=== PATIENT | male | born 1940 | race Caucasian/White ===

== ENCOUNTER → 2017-04-12 | Outpatient (CLI) | payer MEDICARE, OTHER ==
[2017-04-12 11:18] VITALS: BP 145/84; PULSE 66; RESP 18; TEMP 98
--- NOTE | 2017-04-12 11:32 | P.PN ---
Progress Note - Text Progress Note Date: 04/12/17 Patient returns for followup for chronic back pain with radiation to RLE. Patient underwent LESI x 2 in 2016, which provided excellent relief and pain is only now beginning to return. Patient continues on only prn Motrin medications for pain with good relief. Patient denies adverse drug effects from medications. Today, pt denies new-onset weakness, bowel/bladder incontinence, or any other signs or symptoms of cauda equina syndrome. There are no signs of acute intoxication, and no indications of medication diversion or overuse. In addition to above, 13-point review of systems is also negative for chest pain , shortness of breath, changes in vision, changes in hearing, new onset weakness , abdominal pain, diarrhea, extreme fatigue, malaise, fever, skin changes, homicidal or suicidal ideation, or bowel or bladder incontinence. Vital Signs: Reviewed in EMR Gen: WDWN, AAOx3, NAD HEENT: NCAT, EOMI, hearing grossly normal Pulm: resp unlabored Abd: soft, NT, ND Neck: supple, trachea midline ROM in flexion lumbar spine: reduced ROM in extension lumbar spine: reduced Lumbar paravertebral tenderness: + Facet loading: + R SI joint tenderness: + R > L Carlos's test: neg Straight leg raise: + RLE at 10 degrees Neuro: CN II-XII grossly intact, muscle strength lower extremities PRESERVED Imaging: Reviewed in EMR Assessment: 1. lumbar radiculitis 2. lumbar spondylosis 3. chronic pain syndrome Plan: 1. Explanation: Opioid and psychological risk scores were reviewed. Diagnoses , prognoses, and multiple treatment options including but not limited to physical therapy, interventional therapies, adjuvant medical therapies, narcotic medication therapies, and surgery were discussed with the patient and all questions were answered to the patient's satisfaction. 2. Opioid agreement: no opioids prescribed today 3. Counseling: The patient was counseled extensively on SMOKING CESSATION, BODY MASS INDEX, EXERCISE. Specifically, the patient was instructed regarding the importance of quitting smoking, weight control, and exercise in the context of both chronic pain and overall health. 4. Procedures: LESI series L4-L5 or L5-S1 (preferable) 5. Consultations: None 6. Investigations: None 7. Medications: none prescribed 8. Disposition: f/u for PQRS measures: 1-Patient's medications are documented in the chart. 2-Tobacco use is positive, counseling given 3-Patient has not had a pneumococcal vaccine. 4-Advanced care planning discussed, patient unable to give. 5-Opioid contract NOT signed with the patient. 6-Pain positive, follow-up visit or procedure scheduled 7-Patient's blood pressure measured and documented, and WNL. 8-Patient's weight was measured, and body mass index ABOVE the normal limits, and counseling was done. Patient instructed to follow up with PCP. 9-Patient WAS NOT identified as an unhealthy alcohol user.
== END | disposition home or self-care (01) ==
LOC: PNWHC3 11:03
PROVIDERS: ATTEND Anesthesiology
DX: G89.4 Chronic pain syndrome (principal); M47.26 Other spondylosis with radiculopathy, lumbar region; Z79.1 Long term (current) use of non-steroidal anti-inflammatories (NSAID)
CPT/HCPCS: 99211

== ENCOUNTER → 2017-04-18 | Day surgery (SDC) | payer MEDICARE, OTHER ==
[2017-04-13 15:17] VITALS: BMI 26.1
[~2017-04-18] MED LIST: IV FLUID CONTINUATION 1,000 ML IV ONE; LACTATED RINGERS 1,000 ML IV SCH
[2017-04-18 07:49] VITALS: TEMP 97.9
[2017-04-18 08:33] VITALS: RESP 18
[2017-04-18 08:48] VITALS: BP 112/67; PULSE 58
--- NOTE | 2017-04-18 08:48 | FL ---
EXAMINATION TYPE: FL guided pain mgmt statistic DATE OF EXAM: 04/18/2017 CLINICAL HISTORY: Low back pain. TECHNIQUE: Fluoroscopy. COMPARISON: None. FINDINGS: Fluoroscopic guidance was provided during pain relief procedure performed by Dr. Velez . A total of 10 seconds of fluoroscopic time was utilized during the procedure and 3 spot images are ac quired. Images acquired shows needle localization at lumbosacral junction epidural space. IMPRESSION: As Above.
--- NOTE | 2017-04-18 14:06 | P.PCN ---
Date of Procedure: 04/18/17 Surgeon: Drake Velez Pathology: none sent Condition: stable Disposition: PACU Description of Procedure: PREOPERATIVE DIAGNOSIS: 1-Lumbar spinal stenosis POSTOPERATIVE DIAGNOSIS: 1-Lumbar spinal stenosis PROCEDURE 1. Lumbar epidural steroid injection under fluoroscopic guidance at the L5-S1 level. 2. Lumbar epidurogram. ANESTHESIA: Local with 1% lidocaine; IV sedation with Versed/fentanyl. EBL: Minimal PROCEDURE INDICATION: The patient with low back pain and radiculitis symptoms unresponsive to conservative treatment. Fluoroscopy was used to optimize visualization of the needle placement and to maximize safety. PROCEDURE DESCRIPTION / TECHNIQUE: The patient was seen and identified in the preoperative area. Risks, benefits, complications, and alternatives were discussed with the patient, including but not limited to bleeding, infection, nerve damage, allergic reactions to medications, and incomplete pain relief. The patient agreed to proceed with the procedure and signed the consent after all questions were answered. IV was started, and vital signs were stable. Patient was taken to the OR and time out was completed to confirm patient position, procedure, laterality of pain, and allergies. The patient was placed in the prone position on procedure table and a pillow was placed under the abdomen to reduce lumbar lordosis. The lumbosacral area was prepped and draped in the usual sterile fashion. Critical pause was taken. Vital signs were closely monitored during the procedure. Conscious sedation was used during the procedure to decrease patients anxiety. Using anterior-posterior fluoroscopy, the L5-S1 interlaminar space was identified and the skin over this site was marked and then infiltrated with 1% lidocaine subcutaneously. Subsequently, a 20-gauge Tuohy epidural needle was inserted and advanced toward the epidural space using the Loss of resistance technique and guided by AP and lateral fluoroscopy. The correct needle position in the epidural space was verified with the injection of 2 mL of the water soluble contrast dye Omnipaque 300 contrast and observing an excellent epidurogram with the epidural spread of the dye, after negative aspiration for blood and CSF and in the absence of paresthesias. Again after negative aspiration, a 8 ml mixture containing 80 mg of Depo Medrol and 4 ml of preservative free Normal Saline, and 2 ml of preservative free lidocaine 1% solution was injected and a washout of epidurogram was seen. Needle was withdrawn intact, skin was cleansed, and bandages were applied. COMPLICATIONS: None COMMENTS: DISPOSITION / PLANS: The patient was placed in a supine position and transferred to the recovery area in a stable condition for observation. There was no evidence of lower extremity motor or sensory deficit after the procedure. Patient was discharged from the recovery room after meeting discharge criteria. Home discharge instructions were given to the patient by the staff. The patient was reexamined prior to discharge and there were no issues. The patient will schedule a follow up in the clinic in 2-4 weeks.
== END ==
LOC: ORPAIN 07:22
PROVIDERS: ATTEND Anesthesiology
DX: G89.4 Chronic pain syndrome (principal); M48.061 Spinal stenosis, lumbar region without neurogenic claudication; M47.26 Other spondylosis with radiculopathy, lumbar region; F17.200 Nicotine dependence, unspecified, uncomplicated; I10 Essential (primary) hypertension; Z91.040 Latex allergy status
CPT/HCPCS: 62323; J1030; Q9965

== ENCOUNTER → 2017-05-13 | Outpatient (CLI) | payer MEDICARE, OTHER ==
--- NOTE | 2017-05-13 14:28 | XR ---
EXAMINATION TYPE: XR chest 2V DATE OF EXAM: 05/13/2017 COMPARISON: NONE HISTORY: Shortness of breath TECHNIQUE: Frontal and lateral views of the chest are obtained. FINDINGS: Scattered senescent parenchymal changes noted. Hyperinflation compatible with COPD. No evidence for infiltrate. No evidence for atelectasis. Heart size is stable. Mediastinal structures are stable and grossly unremarkable. No evidence for hilar prominence. Degenerative changes dorsal spine. IMPRESSION: 1. No evidence for acute pulmonary disease.
--- NOTE | 2017-05-13 14:30 | XR ---
EXAMINATION TYPE: XR thoracic spine complete DATE OF EXAM: 05/13/2017 CLINICAL HISTORY: pain TECHNIQUE: Frontal, lateral, and swimmer's view of thoracic spine are obtained. COMPARISON: None. FINDINGS: Thoracic spine show satisfactory alignment without evidence of acute fracture or dislocatio n. Vertebral body heights are preserved. Moderate degenerative disc space narrowing and scattered sp ondylosis. Visualized ribs are unremarkable. IMPRESSION: No acute fracture or dislocation is seen in the thoracic spine. ICD 10 NO FRACTURE, INIT IAL EVALUATION
== END ==
LOC: RADXRMAIN 13:58
PROVIDERS: ATTEND Internal Medicine
DX: R07.9 Chest pain, unspecified (principal); M54.6 Pain in thoracic spine; C61 Malignant neoplasm of prostate
CPT/HCPCS: 71046; 72072

== ENCOUNTER 2017-08-31 09:38 | Day surgery (SDC) | payer MEDICARE, OTHER ==
[2017-08-29 15:22] VITALS: BMI 25.4
[~2017-08-31 09:38] MED LIST changes: -IV FLUID CONTINUATION 1,000 ML IV ONE
[2017-08-31 11:16] VITALS: RESP 16; TEMP 98.2
[2017-08-31] MEDS ORDERED: LIDOCAINE 1% 20 ML VIAL (10MG/ML) FOR IV START INTRADERMA ONE (11:27)
--- NOTE | 2017-08-31 12:58 | P.PCN ---
Date of Procedure: 08/31/17 Procedure(s) Performed: PREOPERATIVE DIAGNOSIS: 1- Lumbar Degenerative Disc Diseases 2-Lumbar radiculopathy. POSTOPERATIVE DIAGNOSIS: 1-Lumber Degenerative Disc Diseases 2-Lumbar radiculopathy PROCEDURE 1. Lumbar epidural steroid injection under fluoroscopic guidance at the L5-S1 level. 2. Lumbar epidurogram. ANESTHESIA: Local with 1% lidocaine 3 ml and , moderate sedation with intravenous Versed 1mg ,and fentanyle 50 Mcg EBL: Minimal PROCEDURE INDICATION: The patient with low back pain and radiculitis symptoms unresponsive to conservative treatment. Fluoroscopy was used to optimize visualization of the needle placement and to maximize safety. PROCEDURE DESCRIPTION / TECHNIQUE: The patient was seen and identified in the preoperative area. Risks, benefits , complications including but not limited to infections ,bleeding ,allergic reaction to the medications ,nerve damage and not complete pain releife , and alternatives were discussed with the patient. The patient agreed to proceed with the procedure and signed the consent. IV was started, and vital signs were stable. Patient was taken to the OR and time out was completed. The patient was placed in the prone position on procedure table and a pillow was placed under the abdomen to reduce lumbar lordosis. The lumbosacral area was prepped and draped in the usual sterile fashion.ere closely monitored during the procedure. Conscious sedation was used during the procedure to decrease patients anxiety. Vital signs was monitered during the entire procedure. Using anterior-posterior fluoroscopy, the L5-S1 interlaminar space was identified and the skin over this site was marked and then infiltrated with 1% lidocaine subcutaneously. Subsequently, a 20-gauge Tuohy epidural needle was inserted and advanced toward the epidural space using the ``Loss of resistance technique and guided by AP and lateral fluoroscopy. The correct needle position in the epidural space was verified with the injection of 2 mL of the water soluble contrast dye Isovue 200 contrast and observing an excellent epidurogram with the epidural spread of the dye, after negative aspiration for blood and CSF and in the absence of paresthesias. Again after negative aspiration, a 6 ml mixture containing 40 mg Depo-Medrol, and 2 ml of preservative free Normal Saline, and 2 ml of preservative free lidocaine 1% solution was injected and a washout of epidurogram was seen. Needle was withdrawn intact, skin was cleansed, and bandages were applied. COMPLICATIONS: None DISPOSITION / PLANS: The patient was placed in a supine position and transferred to the recovery area in a stable condition for observation. There was no evidence of lower extremity motor or sensory deficit after the procedure. Patient was discharged from the recovery room after meeting discharge criteria. Home discharge instructions were given to the patient by the staff. The patient was reexamined prior to discharge. The patient will schedule a follow up in the clinic in 2-4 weeks.
[2017-08-31] MEDS ORDERED: IV FLUID CONTINUATION 1,000 ML IV ONE (13:07)
--- NOTE | 2017-08-31 13:21 | FL ---
EXAMINATION TYPE: FL guided pain mgmt statistic DATE OF EXAM: 08/31/2017 HISTORY: Pain Lumbar steroid injection. Dr. Wang. FL time 2 sec. 1 OR film scanned.
[2017-08-31 13:28] VITALS: BP 152/70; PULSE 54
== END 2017-08-31 13:43 | disposition home or self-care (01) ==
LOC: ORPAIN 09:38
PROVIDERS: ATTEND Specialist
DX: M51.16 Intervertebral disc disorders with radiculopathy, lumbar region (principal); I10 Essential (primary) hypertension; Z91.040 Latex allergy status
CPT/HCPCS: 62323; J1030; Q9966

== ENCOUNTER 2017-09-15 07:10 | Day surgery (SDC) | payer MEDICARE, OTHER ==
[2017-09-08 13:28] VITALS: BMI 24.5
[2017-09-15 08:15] VITALS: RESP 16; TEMP 98
[2017-09-15] MEDS ORDERED: LIDOCAINE 1% 20 ML VIAL (10MG/ML) FOR IV START INTRADERMA ONE (08:16)
--- NOTE | 2017-09-15 09:21 | P.PCN ---
Date of Procedure: 09/15/17 Surgeon: Katarina Chaudhari Pathology: none sent Condition: stable Disposition: PACU Description of Procedure: PREOPERATIVE DIAGNOSIS: 1- Lumbar Degenerative Disc Diseases 2-Lumbar radiculopathy. POSTOPERATIVE DIAGNOSIS: 1-Lumber Degenerative Disc Diseases 2-Lumbar radiculopathy PROCEDURE 1. Lumbar epidural steroid injection under fluoroscopic guidance at the L5-S1 level in the right paramedian approach. 2. Lumbar epidurogram. ANESTHESIA: Local with 1% lidocaine 3 ml and , moderate sedation with intravenous Versed 2mg ,and fentanyl 100 Mcg EBL: Minimal PROCEDURE INDICATION: The patient with low back pain and radiculitis symptoms unresponsive to conservative treatment. Fluoroscopy was used to optimize visualization of the needle placement and to maximize safety. PROCEDURE DESCRIPTION / TECHNIQUE: The patient was seen and identified in the preoperative area. Risks, benefits , complications including but not limited to infections ,bleeding ,allergic reaction to the medications ,nerve damage and not complete pain releife , and alternatives were discussed with the patient. The patient agreed to proceed with the procedure and signed the consent. IV was started, and vital signs were stable. Patient was taken to the OR and time out was completed. The patient was placed in the prone position on procedure table and a pillow was placed under the abdomen to reduce lumbar lordosis. The lumbosacral area was prepped and draped in the usual sterile fashion.ere closely monitored during the procedure. Conscious sedation was used during the procedure to decrease patients anxiety. Vital signs was monitered during the entire procedure. Using anterior-posterior fluoroscopy, the L5-S1 interlaminar space was identified and the skin over this site was marked and then infiltrated with 1% lidocaine subcutaneously. Subsequently, a 20-gauge Tuohy epidural needle was inserted and advanced toward the epidural space using the ``Loss of resistance technique and guided by AP and lateral fluoroscopy. The correct needle position in the epidural space was verified with the injection of 2 mL of the water soluble contrast dye Isovue 200 contrast and observing an excellent epidurogram with the epidural spread of the dye, after negative aspiration for blood and CSF and in the absence of paresthesias. Again after negative aspiration, a 7 ml mixture containing 80 mg Kenalog, and 3 ml of preservative free Normal Saline, and 2 ml of preservative free Ropivacaine 0.5% solution was injected and a washout of epidurogram was seen. Needle was withdrawn intact, skin was cleansed, and bandages were applied. COMPLICATIONS: None DISPOSITION / PLANS: The patient was placed in a supine position and transferred to the recovery area in a stable condition for observation. There was no evidence of lower extremity motor or sensory deficit after the procedure. Patient was discharged from the recovery room after meeting discharge criteria. Home discharge instructions were given to the patient by the staff. The patient was reexamined prior to discharge. The patient will schedule a follow up in the clinic in 2-4 weeks.
[2017-09-15 09:45] VITALS: BP 113/74; PULSE 52
[2017-09-15] MEDS ORDERED: IV FLUID CONTINUATION 1,000 ML IV ONE (09:46)
--- NOTE | 2017-09-15 09:46 | FL ---
Fluoroscopy INDICATION: Pain FINDINGS: Fluoroscopy time: 11 seconds. Images obtained: 2. IMPRESSIONS: 1. Documentation of fluoroscopy.
== END 2017-09-15 09:53 | disposition home or self-care (01) ==
LOC: ORPAIN 07:10
PROVIDERS: ATTEND Anesthesiology
DX: M51.16 Intervertebral disc disorders with radiculopathy, lumbar region (principal); I10 Essential (primary) hypertension; F17.200 Nicotine dependence, unspecified, uncomplicated; Z91.040 Latex allergy status
CPT/HCPCS: 62323; J2250; J3301; J3010; Q9966; 99152

== ENCOUNTER → 2017-12-07 | Outpatient (CLI) | payer MEDICARE, OTHER ==
--- NOTE | 2017-12-05 15:02 | P.PAINPG ---
Subjective Progress Note Date: 12/05/17 This is follow-up visit for this patient with a history of severe and chronic low back pain secondary to lumbar degenerative disc diseases , lumbar radiculopathy We have done interventional pain procedures lumbar epidural steroid injections 3, she reported that he had short-term benefit from each injection He continued to have severe low back pain with radiation to the posterior lateral aspect of the lower extremity Patients currently on Tylenol 500 mg twice a day Patient denies any side effects of the medication, denies excessive drowsiness or sleepiness, denies suicidal ideation, Patient denies any motor or sensory deficit , patient denies any fever or night sweats, denies any change in the bowel movements or urination, he reports that the pain interfering with the quality of life Physical Examinations : 1-Constitutional : Cooperative , not in acute distress . 2-HEENT : nech ; supple , no Lymphadenopathy , no Thyromegaly , normal thyroid size . eyes : no ptosis , no icterus, no photophobia . ENT : normal of hearing , normal oropharynx , no Thrush . 3- Respiratory : Chest clear to auscultations Bilaterally , no wheezing , no Rhonchi . 4- Cardiovascular : regular rate and rhythem , S1 , S2 , no S3 , no S4. 5- Gastrointestinal : abdomen soft no tenderness , bowel sounds positive all four quadrents , no organomegally . 6- Genitourinary : Defferred . 7- neurologic: Cranial nerve II to XII intact , no focal neurological deffecit . 8- Psychatric: alert , oriented X 3 , appropriate affect , intact judgment and insight . 9- Lymphatic : no Lymphadenopathy . 10- Musculoskeltal : exams of the cervical spine = motor strength normal bilateral upper extremities facet loading test cervical area positive. exams of the Lumber spine =motor strength lower extremities ,thigh and legs .5/5 deep tendon reflexes : normal Knee Jerk , normal ankle Jerk . lumber facet Loading Test positive strait leg raising test negative bilaterally Fabere test negative bilaterally Range of motion: Range of motion in flexion of the lumbar spine 30 degrees Range of motion range of motion of extension of the lumbar spine 10 Assessment and plan = Chronic low back pain secondary to lumbar degenerative disc disease ,, patient continued to have severe low back pain after 3 lumbar epidural steroid injections Patient currently having clinical findings of lumbar spondylosis with lumbar facet arthropathy We'll order MRI of the lumbar spine . Patient will be good candidate to have diagnostic medial branch block lumbar area L3 to S1 , and we will do the radiofrequency ablation if it was positive PQRS Measure Charge Sheet Measure #130: Documentation of Current Meds in Medical Chart: Patient's medications documented in chart Measure #226: Tobacco Use: Screen & Cessation Intervention: Pt not a tobacco user Measure #111: Pneumonia Vaccination: Pneumococcal vaccine NOT administered or previously given Measure #47: Advance Care Plan: Advance care planning discussed & documented, pt chose/unable to give Measure #412: Opioid Treatment Agreement: No documentation of signed opioid treatment agreement Measure #408: Opioid Therapy Follow-up Evaluation: Patient had NO f/u eval minimum every 3 months during opioid therapy Measure #317: Preventitive Care & Scrn High Bld Press & F/U: Normal blood pressure, f/u not required Measure #128: Body Mass Index (BMI) Screening & Follow-up: BMI documented within normal parameters Measure #131: Pain Assessment & Follow-up: Pain positive & plan documented, Follow-up scheduled Measure #431: Unhealthy Alcohol Use Preventative Care & Scrn: Patient not identified as an unhealthy alcohol user PQRS Narrative: Smoking Status Former smoker Hx Alcohol Use (MH) Yes: OCC. Home Medications: Ambulatory Orders Latanoprost Ophth [Xalatan 0.005%] 1 drops LEFT EYE HS 10/22/14 Benazepril HCl [Lotensin] 20 mg PO DAILY 11/25/14 amLODIPine BESYLATE [Norvasc] 5 mg PO DAILY 11/25/14 Acetaminophen [Tylenol] 1,000 mg PO DAILY PRN 12/05/17 Controlled Substance Measures - Controlled Substance Measures Is patient prescribed a controlled substance at discharge?: No When asked, does pt state using other controlled substances?: No If prescribed controlled substance>3 days was MAPS reviewed?: No If Rx opioid, was Start Talking consent form obtained?: No If opioid is for acute pain is fill amount 7 days or less?: No Was information provided regarding opioid addiction?: No
--- NOTE | 2017-12-07 09:49 | MR ---
EXAMINATION TYPE: MR lumbar spine wo/w con DATE OF EXAM: 12/07/2017 COMPARISON: None HISTORY: 77-year-old male Lumbar Spondylosis, pain in back going down rt leg x 4 years Technique: Multiplanar, multisequence images of the lumbar spine were obtained before and after admin istration of 7 mL intravenous Gadavist gadolinium contrast. FINDINGS: 3.3 cm cyst upper pole right kidney and 2.9 cm upper pole left kidney. Ectatic 2.6 cm caliber to the mid abdominal aorta. No prevertebral or paravertebral soft tissue abnormality otherwise seen. Vertebral body heights are preserved. However, there is multilevel moderately advanced disc/endplate degenerative changes as well as multil evel hypertrophic facet arthropathy and ligamentum flavum thickening. Mild heterogeneity of marrow signal without suspicious bone marrow replacement. Some Modic type I end plate change at L5-S1. Conus medullaris is normal. Grade 1 retrolisthesis at L1-L2 and L2-L3. At T12-L1, no significant canal or foraminal stenosis. At L1-L2, grade 1 retrolisthesis, diffuse disc bulge and mild facet arthropathy. Changes contribute t o abutment of the traversing left L2 nerve root and mild bilateral neuroforaminal stenosis without si gnificant spinal canal stenosis. At L2-L3, grade 1 retrolisthesis, ligamentum flavum thickening, facet arthropathy, and diffuse bulgin g disc. Changes result in mild spinal canal stenosis along with mild to moderate bilateral neuroforam inal stenosis. At L3-L4, diffuse disc bulge with ligamentum flavum thickening and facet arthropathy. Changes result in mild spinal canal stenosis with mild bilateral neuroforaminal stenosis. At L4-L5, diffuse disc bulge with right intraforaminal component, hypertrophic facet arthropathy, lig amentum flavum thickening. Changes result in moderate to severe spinal canal stenosis with severe rig ht neuroforaminal stenosis and likely impingement of the traversing right L5 nerve root as well. At L5-S1, disc osteophyte complex with hypertrophic facet arthropathy and ligamentum flavum thickenin g. Changes result in moderate to severe right and moderate left neuroforaminal stenosis with probable impingement of the exiting right L5 nerve root. No spinal canal stenosis. There is some mild enhancement along the right posterior epidural space at L5 level overlying the th ickened ligamentum flavum, likely reactive change. Otherwise, no abnormal enhancement within the spin al canal. IMPRESSION: 1. Multilevel moderate to advanced multilevel disc/endplate degenerative change as well as hypertroph ic facet arthropathy and ligamentum flavum thickening. Some associated edematous Modic type I endplat e change at L5-S1. 2. Degenerative grade 1 spondylolistheses at L1-L2, L2-L3. 3. At both L2-L3 and L3-L4, there is mild spinal canal stenosis. Moderate to severe spinal canal sten osis at L4-L5. 4. Large asymmetric disc bulge towards the right at L4-L5 causes severe right neural foraminal stenos is and likely prominent contact of the traversing right L5 nerve root as well. 5. Changes cause moderate to severe right and moderate left neuroforaminal stenosis at L5-S1.
== END ==
LOC: RADMRIMAIN 07:14
PROVIDERS: ATTEND Specialist
DX: M48.061 Spinal stenosis, lumbar region without neurogenic claudication (principal); M99.73 Connective tissue and disc stenosis of intervertebral foramina of lumbar region; M99.74 Connective tissue and disc stenosis of intervertebral foramina of sacral region; M43.16 Spondylolisthesis, lumbar region; M51.26 Other intervertebral disc displacement, lumbar region; M51.36 Other intervertebral disc degeneration, lumbar region; M46.96 Unspecified inflammatory spondylopathy, lumbar region
CPT/HCPCS: 82565; 72158; 36415; A9585

== ENCOUNTER → 2017-12-13 | Day surgery (SDC) | payer MEDICARE, OTHER ==
[2017-12-07 14:19] VITALS: BMI 24.5
[~2017-12-13] MED LIST changes: -LACTATED RINGERS 1,000 ML IV SCH; +SODIUM CHLORIDE 0.9% 500 ML 500 ML IV SCH
[2017-12-13 06:34] VITALS: PULSE 64; RESP 20; TEMP 98.3
--- NOTE | 2017-12-13 07:26 | P.PCN ---
Date of Procedure: 12/13/17 Procedure(s) Performed: PREOPERATIVE DIAGNOSIS : 1- Lumbar spondylosis with Facet Arthropathy without myelopathy . 2- Lumber degenerative disc disease POSTOPERATIVE DIAGNOSIS: 1- Lumbar spondylosis with Facet Arthropathy without myelopathy . 2- Lumber degenerative disc disease PROCEDURE: Diagnostic bilateral L3 -4 , L4 -5 , and L5-S1 medial branch block under fluoroscopy ANESTHESIA: Local with Ropivacain 0.5 % 6 ml , moderate sedation with intravenous Versed 2 mg and Fentanyl 100 mcg. EBL: Minimal COMPLICATION: None. IV FLUIDS: 100 mL of normal saline. PROCEDURE INDICATION: Chronic low back pain secondary to Facet arthropathy unresponsive to conservative treatment. PROCEDURE DESCRIPTION: the patient was seen and identified in the preop holding area , risks and benefits and possible complications of the procedure and alternative were discussed with the patient, and the patient agreed to proceed with the procedure and signed the consent IV was started and vital signs monitored during the procedure and fluoroscopy was used to maximize the benefit and accuracy of the needle placement, and sedation was given to decrease patient anxiety, patient was taken to the procedure room and placed in prone position vital signs monitored in the back prepped with chlorhexidine X3 then under strict sterile technique using a right oblique fluoroscopy ,the junction of the transverse process and the superior articulating process of the right L3- 4 , L4- 5, and L5-S1 vertebra which corresponding to the fluoroscopy image of the eye of the Vishal dog on the block side for the medial branches and subsequently , after local infiltration of skin and subcu tissuies with Ropivacaine 0.5 % , one mL at each level , then 22-gauge Quincke-type needles , 3 needle was used , each one of them placed at the junction of the base of the transverse process and the superior articular process at the appropriate level, and the needle was advanced until the periosteum contacted, needle placement confirmed with AP oblique and lateral view and after appropriate needle placement confirmed, and after negative aspiration for heme and CSF and there was no paresthesia 1-1/2 mL of Ropivacaine 0.5% mixed with 20 mg Kenalog , then half mL injected at each level after negative aspiration the needle subsequently removed and the same procedure repeated for the left side at left side at L3-4, L4- 5 and L5-S1 levels. At the end of the procedure and the needles removed and a bandage applied after the skin was cleaned the cleaning solution patient taken to recovery room in stable condition and monitors in the recovery room for 20-30 minutes and discharged home in stable condition after discharge criteria met and patient will follow up with the pain clinic in 2-4 weeks
[2017-12-13 08:27] VITALS: BP 130/65
--- NOTE | 2017-12-13 08:41 | FL ---
EXAMINATION TYPE: FL guided pain mgmt statistic DATE OF EXAM: 12/13/2017 COMPARISON: NONE HISTORY: Low back pain TECHNIQUE: Fluoroscopy. FINDINGS/IMPRESSION: Fluoroscopic guidance was provided during procedure performed by Dr. Berry. A total of 11 seconds of fluoroscopic time was utilized during the procedure and 4 spot images was a cquired demonstrating multilevel localization of the lumbar spine.
== END | disposition home or self-care (01) ==
LOC: ORPAIN 05:51
PROVIDERS: ATTEND Specialist
DX: G89.29 Other chronic pain (principal); M47.816 Spondylosis without myelopathy or radiculopathy, lumbar region; M47.26 Other spondylosis with radiculopathy, lumbar region; M51.16 Intervertebral disc disorders with radiculopathy, lumbar region; I10 Essential (primary) hypertension
CPT/HCPCS: 64493; 64494; 64495; J2250; J3301; J3010; 99152

== ENCOUNTER → 2018-01-24 | Outpatient (CLI) | payer MEDICARE, OTHER ==
[2018-01-24 12:08] VITALS: BP 125/69; PULSE 53; RESP 16
--- NOTE | 2018-01-24 12:48 | P.PN ---
Subjective Progress Note Date: 01/24/18 Principal diagnosis: Lumbar spondylosis without myelopathy This is a 77-year-old gentleman with history of chronic lower back pain with radiation to the right lower extremity down to the right ankle as he states. The patient had diagnostic lumbar medial branch block on the right side which gave him significant relief of his pain both in his lower back and in his right leg. The pain relief is more than 80%. The patient also has a history of postherpetic neuralgia in the left thigh. Today, pt denies new-onset weakness, bowel/bladder incontinence, or any other signs or symptoms of cauda equina syndrome. There are no signs of acute intoxication, and no indications of medication diversion or overuse. In addition to above, 13-point review of systems is also negative for chest pain , shortness of breath, changes in vision, changes in hearing, new onset weakness , abdominal pain, diarrhea, extreme fatigue, malaise, fever, skin changes, homicidal or suicidal ideation, or bowel or bladder incontinence. Vital Signs: Reviewed in EMR Gen: AAOx3, NAD HEENT: PERRLA,hearing grossly normal Pulm: resp unlabored,CTA Heart:S1,S2, No Mur Neck: supple, trachea midline Neuro exam of the lower extremities: Straight leg raising test: Carlos's test: Range of motion of the lumbar spine: Facet loading test: Tenderness in the paravertebral musculature: Neuro: CN II-XII grossly intact, Imaging: Reviewed in EMR/chart Assessment: Lumbar spondylosis without myelopathy Left leg postherpetic neuralgia Plan: 1. Explanation: Opioid and psychological risk scores were reviewed. Diagnoses , prognoses, and multiple treatment options including but not limited to physical therapy, interventional therapies, adjuvant medical therapies, narcotic medication therapies, and surgery were discussed with the patient and all questions were answered to the patient's satisfaction. 2. Opioid agreement: We do not prescribe opioids 3. Counseling: The patient was counseled extensively on SMOKING CESSATION, BODY MASS INDEX, EXERCISE. Specifically, the patient was instructed regarding the importance of smoking cessation, obesity, and exercise in the context of both chronic pain and overall health. 4. Procedures: Scheduled for right lumbar medial branch RFA for levels L3 4, L4 -L5, and L5-S1 under fluoroscopic guidance. 5. Consultations: None 6. Investigations: None 7. Medications: None 8. Disposition: Return to the above-mentioned procedure after he comes back from his trip to [place] 9. Maps were reviewed and were appropriate. PQRS measures: 1-Patient's medications are documented in the chart. 2-Tobacco use is negative, counseling given 3-Patient has not had a pneumococcal vaccine. 4-Advanced care planning discussed, patient unable to give 5-Opioid contract not signed with the patient. 6-Pain positive, follow-up visit or procedure scheduled 7-Patient's blood pressure measured and documented within normal limits. 8-Patient's weight was measured, and body mass index in the normal limits, and counseling was done. Patient instructed to follow up with PCP. 9-Patient WAS NOT identified as an unhealthy alcohol user. Objective - Vital Signs Vital signs: Vital Signs Temp Pulse 53 L 01/24/18 12:05 Resp 16 01/24/18 12:05 BP 125/69 01/24/18 12:05 Pulse Ox 98 01/24/18 12:05 Intake & Output 01/23/18 01/24/18 01/24/18 18:59 06:59 18:59 Weight 65.771 kg
== END ==
LOC: PNWHC3 11:45
PROVIDERS: ATTEND Anesthesiology
DX: M47.816 Spondylosis without myelopathy or radiculopathy, lumbar region (principal); B02.29 Other postherpetic nervous system involvement
CPT/HCPCS: 99211

== ENCOUNTER → 2018-04-04 | Outpatient (CLI) | payer MEDICARE, OTHER ==
[2018-04-04 10:48] VITALS: BP 147/81; PULSE 53; RESP 16
--- NOTE | 2018-04-04 11:12 | P.PN ---
Subjective Progress Note Date: 04/04/18 Mr. Parish is a 77-year-old gentleman who presents today as a follow-up. He reports that his low back pain is significantly improved after his radiofrequency ablation. He feels that he has some pain in the morning for about an hour which is better than it was in the past but he continues to have pain for about an hour in the morning which improves throughout the day. On today's visit he reports he is having no low back pain at this time. He is complaining of a pain over the left thigh which is chronic in nature but it subsided for a while. He attributes his pain to a history of herpes zoster that level which was significantly painful at the time and subsided for a while. He feels that the area is tender to palpation and even tender to light touch is over the left groin and left anterior thigh. He feels the pain sometimes causes him to limp at time secondary to the pain. He denies any hip problems. Denies any pain over the SI joint or over the lumbar spine left side. He has trialed [id number] medications and Biofreeze medications which have not been very helpful for the area. He does not use any other neuropathic medications at this time Objective - Vital Signs Vital signs: Vital Signs Temp Pulse 53 L 04/04/18 10:38 Resp 16 04/04/18 10:38 BP 147/81 04/04/18 10:38 Pulse Ox Intake & Output 04/03/18 04/04/18 04/04/18 18:59 06:59 18:59 Weight 65.771 kg - Exam General: Awake and alert oriented 3 no distress Respiratory exam: No audible wheezing no accessory muscle usage Cardiovascular exam: regular rate, palpable bilateral pulses, no lower extremity edema Abdominal exam: No distention nontender to palpation Cervical spine: Normal alignment, Spurling's negative, facet loading negative Lumbar spine: Loss of lumbar lordosis, normal alignment, tender to palpation over bilateral paraspinal muscles, facet loading is positive bilaterally. Straight leg raise is negative. Sacroiliac joints: Nontender to palpation, HOLLIE is negative, Gaenselon negative Hips: Bilateral hip range of motion is minimally limited with internal and external rotation. There is no pain with internal and external rotation or with extension or flexion of the hip joints. Neuro exam: Normal sensation in bilateral upper extremities, deep tendon reflexes are 2+ bilateral upper extremities. Deep tendon reflexes are 1+ in lower extremities. His sensitive to light touch over the left groin. No notable skin changes. Psych exam: Cooperative, appropriate mood Assessment and Plan Assessment: #1 lumbar spondylosis without myelopathy #2 postherpetic neuralgia in the left leg Plan: On today's visit we discussed conservative therapies for his postherpetic neuralgia. At this point they've elected to move forward with the biomed compound cream. I have ordered the cream today in the company will be in contact with them over the next 24-48 hours. I've advised him to try this cream for about a month and give us a call back if he has does not improve. We will see the patient back in 4-6 weeks and then we'll discuss further interventions at that time.
== END ==
LOC: PNWHC3 10:30
PROVIDERS: ATTEND Hospitalist
DX: M47.816 Spondylosis without myelopathy or radiculopathy, lumbar region (principal); B02.29 Other postherpetic nervous system involvement
CPT/HCPCS: 99211

== ENCOUNTER → 2021-08-20 | Outpatient (CLI) | payer MEDICARE, OTHER ==
[2021-08-20 13:26] VITALS: BP 125/59; PULSE 56; RESP 18
--- NOTE | 2021-08-20 13:37 | P.PAINPG ---
PQRS Measure Charge Sheet Comment: HISTORY OF PRESENT ILLNESS: 81 yr old male w at side as a referral from presents today with severe and chronic L hip pain secondary to shingles for evaluation. States he suffered with shingles 8 yrs ago. Pain level is currently at 5/10 in intensity, intermittent, sharp/ shooting towards the inner L thigh. Pain is provoked with walking and overactivity. Pain is palliated (Tylenol, Motrin), topicals, home based exercise regimen, sitting with RLE crossed and rest. PMH: HTN, Glaucoma, PHN, OA PSH: Lumbar RFA. LESI while in [place]. SH: Negative x 3 FH: Non contributory All: Latex Meds: See list REVIEW OF ORGAN SYSTEMS: CONSTITUTIONAL: No fevers or chills. No recent weight loss . NEUROLOGICAL: + numbness and tingling along the distal extremities. No seizure disorders or headaches. MUSCULOSKELETAL: + pain PSYCHIATRIC: Denies current depression or suicidal thoughts. Physical Examinations : Constitutional : Cooperative , not in acute distress . Neurologic : Cranial nerve II to XII intact. No focal neurological deficits. Psychiatric : alert & oriented x 3. Matching mood & appropriate affect. Judgment & insight intact. Musculoskeletal : Cervical Spine Motor strength in the deltoid and biceps: Normal right side. Normal Left side Motor strength biceps and the wrist ext ensors: Normal right side . Normal left side Motor strength in the triceps muscle: Normal right side. Normal left side Deep tendon reflexes: Normal at the biceps. Normal at Brachioradialis. Normal at triceps Vertebral body tenderness to deep palpation over Cervical facet loading test: positive bilaterally Spurling test: positive bilaterally Neck distraction test: positive bilaterally Eduardo sign: positive bilaterally Lumbar spine Motor strength lower extremities ,thigh and legs 5/5 Right side , 5/5 Left side Deep tendon reflexes : Normal Knee Jerk. Normal Ankle Jerk Vertebral body tenderness over Lumbar facet Loading Test: positive Right / positive Left Range of motion of the lumbar spine Flexion 30 degrees, extension 10 degrees Straight Leg Raise test: Left/ Right positive at degree Tato test: positive right / positive left. Severe tenderness over the Sacroiliac joint on the Right / Left sides Gaenslen test: positive bilaterally Seated flexion test: positive bilaterally. Sacral spine : Severe tenderness over the Sacroiliac joint: right side / left side Range of motion: Flexion of the lumbar spine <60 degrees Range of motion: Extension of the lumbar spine <20 degrees Gaenslen's Test positive Carlos's Test positive Tato test: positive right side / left side Thigh Thrust Test on L tip of tailbone Sacral Thrust Test on L tip of tailbone Imaging: No imaging available Assessment/ Plan : Post Herpetic Neuralgia of the L Sacral Nerve Recommendation of L SI joint injection. May need a series of injections, up to every 3 months, for optimal pain relief. Risks, benefits of procedure discussed and patient verbalized understanding. Denies aspirin or anti- coagulant use or medical history of diabetes. Protocol for discontinuation/ continuation of medications tom procedure discussed. All questions answered. I have spent greater than 30 minutes on patient care today. Dr To was available by phone for the evaluation of this patient. The time was used to review the medical records including relevant urine studies and Prescription history (MAPs), review of the available imaging, evaluation and examination of the patient, coordination of care with the medical staff and if applicable referring physicians, as well as creation of the medical record - Pain Location Left Back Non-Pharmacological Interventions: Home Exercise, Position/Reposition, Sitting, Stretching Pharmacological Interventions: Epidural, PRN Medication, Topical Medication PQRS Narrative: Smoking Status Current some day smoker Hx Alcohol Use (MH) Yes: OCC. Home Medications: Ambulatory Orders Latanoprost Ophth [Xalatan 0.005%] 1 drops LEFT EYE HS 10/22/14 Benazepril HCl [Lotensin] 20 mg PO QAM 11/25/14 amLODIPine BESYLATE [Norvasc] 5 mg PO QAM 11/25/14 Acetaminophen [Tylenol] 1,000 mg PO DAILY PRN 12/05/17 Timolol 0.5% Ophth Gel Forming [Timoptic-Xe] 1 drops LEFT EYE DAILY 03/07/18 Diclofenac Sodium Gel [Voltaren Gel] 100 gm TOPICAL QID PRN 30 Days #3 gm 08/20/21 Controlled Substance Measures - Controlled Substance Measures Is patient prescribed a controlled substance at discharge?: No
== END | disposition home or self-care (01) ==
LOC: PNWHC3 12:29
PROVIDERS: ATTEND Specialist
DX: M79.2 Neuralgia and neuritis, unspecified (principal)
CPT/HCPCS: 99211

== ENCOUNTER 2021-09-08 06:59 | Day surgery (SDC) | payer MEDICARE, OTHER ==
[~2021-09-08 06:59] MED LIST changes: +LACTATED RINGERS 1,000 ML IV SCH; +LIDOCAINE 1% (10MG/ML) FOR IV START INTRADERMA PRN; -SODIUM CHLORIDE 0.9% 500 ML 500 ML IV SCH
[2021-09-08 07:45] VITALS: RESP 16; TEMP 97
[2021-09-08] MEDS ORDERED: methylPREDNISolone ACETATE 40 MG/ML 1 ML VIAL ONE (08:11)
[2021-09-08] MEDS ORDERED: ROPIVACAINE 5MG/ML 20ML VIAL ONE (08:11)
[2021-09-08] MEDS ORDERED: fentaNYL (PF) 50 MCG/ML 2 ML AMP ONE (08:11)
[2021-09-08] MEDS ORDERED: MIDAZOLAM 2 MG/2 ML VIAL ONE (08:11)
--- NOTE | 2021-09-08 08:21 | P.PCN ---
Date of Procedure: 09/08/21 Procedure(s) Performed: Procedure= left sacroiliac joints steroid injection under fluoroscopy guidance (fluoroscopy image stored on file in the radiology Department ) Preoperative diagnosis= 1-left sacroiliitis 2-post herpetic neuralgia ( sacral area ). 3-lumbar facet arthropathy Postoperative diagnosis=Same as preop Diagnosis . Complication = none Condition= stable Anesthesia= moderate sedation with intravenous Versed 0.5 mg , and fentanyl 25 micrograms . Description of the procedure= procedure risk and benefits discussed with the patient, including but not limited, risk of infection and bleeding, and ALLERGIC reaction to the medication and not complete pain relief and patient agreed with the preceding patient taken to the operating room, placed in prone position or standard monitors applied to the patient then after induction of anesthesia back prepped with chlorhexidine 3 times , Then the left sacroiliac joint steroid injection done under strict sterile technique local infiltration of the skin and subcu interstitial at the location of the left sacroiliac joint then a 22-gauge Quincke Needle advanced slowly under fluoroscopy time placed in the left sacroiliac joint, needle placement confirmed with AP and oblique and lateral view then after appropriate needle placement confirmed and after negative aspiration 0.5% Ropivacaine 4 mL and 40 mg of Depo-Medrol injected in the left sacroiliac joint after negative aspiration patient tolerated the procedure well that any complications and she will follow up in clinic 3 weeks
[2021-09-08] MEDS ORDERED: LACTATED RINGERS 1,000 ML IV ONE (08:23)
--- NOTE | 2021-09-08 08:30 | FL ---
EXAMINATION TYPE: FL guided pain mgmt statistic DATE OF EXAM: 09/08/2021 HISTORY: Fluoroscopy time 2 seconds of fluoroscopy provided. IMPRESSION: 1. Fluoroscopy time.
[2021-09-08 08:43] VITALS: BP 133/68; PULSE 50
== END 2021-09-08 09:08 | disposition home or self-care (01) ==
LOC: ORPAIN 06:59
PROVIDERS: ATTEND Specialist
DX: M46.1 Sacroiliitis, not elsewhere classified (principal); M47.816 Spondylosis without myelopathy or radiculopathy, lumbar region; B02.29 Other postherpetic nervous system involvement; Z91.040 Latex allergy status; Z79.899 Other long term (current) drug therapy; Z87.891 Personal history of nicotine dependence; Z80.9 Family history of malignant neoplasm, unspecified
CPT/HCPCS: J2250; J1030; J3010; J2795; G0260; 27096

== ENCOUNTER → 2021-09-28 | Outpatient (CLI) | payer MEDICARE, OTHER ==
[2021-09-28 10:59] VITALS: BP 166/79; PULSE 55; RESP 18; TEMP 97.8
--- NOTE | 2021-09-28 14:24 | P.PAINPG ---
Objective - Vital Signs Vital signs: Vital Signs Temp 97.8 F 09/28/21 10:55 Pulse 55 L 09/28/21 10:55 Resp 18 09/28/21 10:55 BP 166/79 09/28/21 10:55 Pulse Ox 99 09/28/21 10:55 FiO2 Intake & Output 09/27/21 09/28/21 09/28/21 18:59 06:59 18:59 Weight 63.503 kg PQRS Measure Charge Sheet Mode of Arrival: Ambulatory Comment: A 81 yr old male w at side with a history of severe and chronic low back pain secondary to lumbar degenerative disc diseases and lumbar spondylosis with facet arthropathy presents today for evaluation s/p L SI joint . Pt states he experienced 50% relief s/p procedure. Pain level is currently at 3/10 in intensity, sharp and achy in the lower aspect of the lumbar spine where it meets the tailbone but escalates as high as 7/10 w sitting for periods of 15 min or more. Pain is alleviated with medications, topicals, injections, daily home stretching regimen, use of a cane as needed, repositioning and rest. Interventional pain procedures completed include L SI joint injection x1 Patient is currently on Tylenol, Voltaren gel Patient denies any side effects of the medication(s), denies excessive drowsiness or sleepiness, denies suicidal ideation and reports that the current pain medication is helping to control the pain and improve activities of daily living. Patient denies any motor or sensory deficits. Patient denies any fever or night sweats, denies any change in the bowel movements or urination. Physical Examination: -Constitutional: Cooperative. Not in acute distress . - Neurologic: Cranial nerve II to XII intact. No focal neurological deficits. - Psychatric: Alert & oriented x 3. Matching mood & appropriate affect. Judgment and insight intact. - Musculoskeletal: Cervical spine: Muscle bulk/ tone/ strength in the bilateral upper extremities normal Vertebral body tenderness to palpation over Spurling test positive Distraction test positive Facet loading test positive Thoracic spine Muscle bulk / tone/ strength in the bilateral paraspinal muscles normal Vertebral body tender to palpation over Facet loading test positive Lumbar spine: Motor bulk/ tone/ strength lower extremities , thigh and legs : 5/5 Deep tendon reflexes : Normal Knee Jerk. Normal Ankle Jerk . Vertebral body tenderness to palpation over Lumbar Facet Loading Test positive Straight Leg Raise: positive at 30 degrees right side/ left side Gaenslen's Test positive Sacral spine : Severe tenderness over the Sacroiliac joint: right side / left side Range of motion: Flexion of the lumbar spine <60 degrees Range of motion: Extension of the lumbar spine <20 degrees Gaenslen's Test positive on the L Tato test: positive right side / left side L Thigh Thrust Test Sacral Thrust Test +L Assessment and plan: Chronic low back pain secondary to lumbar degenerative disc disease , lumbar spondylosis with facet arthropathy without myelopathy Pt exhibited sufficient and optimal pain relief s/p procedure. Recommendation of L SI joint injection. May need repeat procedures, up to every 3 mo, if necessary, for optimal pain relief. Risks, benefits of procedure discussed and pt verbalized understanding. All patient questions answered MAPS reviewed and it was appropriate. Prescription refill for Voltaren gel w 1 refill. I have spent less than 30 minutes on patient care today. Dr To was available by phone for the evaluation of this patient. The time was used to review the medical records including relevant urine studies and Prescription history (MAPs), review of the available imaging, evaluation and examination of the patient, coordination of care with the medical staff and if applicable referring physicians, as well as creation of the medical record - Pain Location Left Groin Non-Pharmacological Interventions: Home Exercise, Inactivity, Position/Reposition, Stretching Pharmacological Interventions: PRN Medication, Topical Medication PQRS Narrative: Smoking Status Current some day smoker Blood Pressure 166/79 Pain Intensity [Left Groin] 3 Scale Used Numeric (1 - 10) Hx Alcohol Use (MH) Yes: OCC. Home Medications: Ambulatory Orders Latanoprost Ophth [Xalatan 0.005%] 1 drops LEFT EYE HS 10/22/14 Benazepril HCl [Lotensin] 20 mg PO QAM 11/25/14 amLODIPine BESYLATE [Norvasc] 5 mg PO QAM 11/25/14 Acetaminophen [Tylenol] 1,000 mg PO DAILY PRN 12/05/17 Timolol 0.5% Ophth Gel Forming [Timoptic-Xe] 1 drops LEFT EYE DAILY 03/07/18 Diclofenac Sodium Gel [Voltaren Gel] 100 gm TOPICAL QID PRN 30 Days #3 gm 09/28/21 Controlled Substance Measures - Controlled Substance Measures Is patient prescribed a controlled substance at discharge?: No
== END ==
LOC: PNWHC3 10:31
PROVIDERS: ATTEND Specialist
DX: M51.36 Other intervertebral disc degeneration, lumbar region (principal); M47.816 Spondylosis without myelopathy or radiculopathy, lumbar region; G89.29 Other chronic pain; F17.200 Nicotine dependence, unspecified, uncomplicated; Z91.040 Latex allergy status
CPT/HCPCS: 99211

== ENCOUNTER 2021-12-17 05:53 | Day surgery (SDC) | payer MEDICARE, OTHER ==
[2021-12-17] MEDS ORDERED: LIDOCAINE 1% (10MG/ML) FOR IV START INTRADERMA PRN (06:15)
[2021-12-17 06:40] VITALS: TEMP 98.3
[2021-12-17] MEDS: LACTATED RINGERS 1,000 ML IV SCH ×2 (06:44→07:02)
[2021-12-17] MEDS ORDERED: ROPIVACAINE 5 MG/ML 20 ML AMPULE ONE (07:04)
[2021-12-17] MEDS ORDERED: MIDAZOLAM 2 MG/2 ML VIAL ONE (07:04)
[2021-12-17] MEDS ORDERED: methylPREDNISolone ACETATE 40 MG/ML 1 ML VIAL ONE (07:04)
--- NOTE | 2021-12-17 07:18 | P.PCN ---
Date of Procedure: 12/17/21 Procedure(s) Performed: Procedure= left sacroiliac joints steroid injection under fluoroscopy guidance (fluoroscopy image stored on file in the radiology Department ) Preoperative diagnosis= 1-left sacroiliitis 2-post herpetic neuralgia ( sacral area ). 3-lumbar facet arthropathy Postoperative diagnosis=Same as preop Diagnosis . Complication = none Condition= stable Anesthesia= moderate sedation with intravenous Versed 1 mg . Sedation Start time 0 710. Sedation end time 0 7:15 Description of the procedure= procedure risk and benefits discussed with the patient, including but not limited, risk of infection and bleeding, and ALLERGIC reaction to the medication ,and not complete pain relief and patient agreed with the preceding patient taken to the operating room, placed in prone position or standard monitors applied to the patient then after induction of anesthesia back prepped with chlorhexidine 3 times , Then the left sacroiliac joint steroid injection done under strict sterile technique local infiltration of the skin and subcu interstitial at the location of the left sacroiliac joint then a 22-gauge Quincke Needle advanced slowly under fluoroscopy time placed in the left sacroiliac joint, needle placement confirmed with AP and oblique and lateral view then after appropriate needle placement confirmed and after negative aspiration 0.5% Ropivacaine 4 mL and 40 mg of Depo-Medrol injected in the left sacroiliac joint after negative aspiration patient tolerated the procedure well that any complications and she will follow up in clinic 3 weeks
[2021-12-17] MEDS ORDERED: IV FLUID CONTINUATION 1,000 ML IV ONE (07:23)
[2021-12-17 07:30] VITALS: RESP 15
[2021-12-17 08:22] VITALS: BP 110/64; PULSE 81
--- NOTE | 2021-12-17 11:25 | FL ---
EXAMINATION TYPE: FL guided pain mgmt statistic DATE OF EXAM: 12/17/2021 FLUOROSCOPY Fluoroscopy time of 1 seconds was used during left SI joint injection. 1 image/s document/s the proc edure.
== END 2021-12-17 08:03 | disposition home or self-care (01) ==
LOC: ORPAIN 05:53
PROVIDERS: ATTEND Specialist
DX: M46.1 Sacroiliitis, not elsewhere classified (principal); B02.29 Other postherpetic nervous system involvement; M47.816 Spondylosis without myelopathy or radiculopathy, lumbar region; Z91.040 Latex allergy status
CPT/HCPCS: J2250; J1030; J2795; G0260; 27096

== ENCOUNTER → 2021-12-31 | Outpatient (CLI) | payer MEDICARE, OTHER ==
[2021-12-31 12:41] VITALS: BP 175/84; PULSE 62; RESP 18; TEMP 98.1
== END ==
LOC: PNWHC3 10:41
PROVIDERS: ATTEND Specialist
DX: M46.1 Sacroiliitis, not elsewhere classified (principal)
CPT/HCPCS: 99211

== ENCOUNTER 2022-01-19 11:51 | Day surgery (SDC) | payer MEDICARE, OTHER ==
[2022-01-15 15:01] VITALS: BMI 23.7
[~2022-01-19 11:51] MED LIST changes: -LIDOCAINE 1% (10MG/ML) FOR IV START INTRADERMA PRN
[2022-01-19 12:32] VITALS: RESP 16; TEMP 97
[2022-01-19] MEDS ORDERED: IOPAMIDOL M200 10 ML VIAL ONE (13:01)
[2022-01-19] MEDS ORDERED: methylPREDNISolone ACETATE 40 MG/ML 1 ML VIAL ONE (13:01)
--- NOTE | 2022-01-19 13:03 | P.PCN ---
Date of Procedure: 01/19/22 Description of Procedure: PREOPERATIVE DIAGNOSIS: lumbar radiculopathy POSTOPERATIVE DIAGNOSIS: Lumbar radiculopathy PROCEDURE 1. Lumbar epidural steroid injection under fluoroscopic guidance at the L3-L4 level. 2. Lumbar epidurogram. Imaging: Fluoroscopy was used, images where saved to the medical record ANESTHESIA: Local only EBL: Minimal PROCEDURE INDICATION: The patient with low back pain and radiculitis symptoms unresponsive to conservative treatment. Fluoroscopy was used to optimize visualization of the needle placement and to maximize safety. PROCEDURE DESCRIPTION / TECHNIQUE: The patient was seen and identified in the preoperative area. Risks, benefits, complications including but not limited to infections, bleeding, allergic re action to medications, nerve damage and incomplete pain relief, as well as alternatives to the procedure were discussed with the patient. The patient agreed to proceed with the procedure and signed the consent. IV was started if indicated above, and vital signs were stable. Patient was taken to the OR and time out was completed. The patient was placed in the prone position on procedure table and a pillow was placed under the abdomen to reduce lumbar lordosis. The lumbosacral area was prepped and draped in the usual sterile fashion. Vitals were closely monitored during the procedure. Using anterior-posterior fluoroscopy, the L3-L4 interlaminar space was identified and the skin over this site was marked and then infiltrated with 1% lidocaine subcutaneously. Subsequently, a 20-gauge Tuohy epidural needle was inserted and advanced toward the epidural space using the Loss of resistance technique and guided by AP and lateral fluoroscopy. The correct needle position in the epidural space was verified with the injection of 1 mL of Omnipaque 180 contrast to observe an acceptable epidurogram, after negative aspiration for blood and CSF and in the absence of paresthesias. Again after negative aspiration, a 3 ml mixture containing 40mg of depomedrol and 2 ml of preservative free Normal Saline was injected and a washout of epidurogram was seen. Needle was withdrawn intact, skin was cleansed, and bandages were applied. COMPLICATIONS: None DISPOSITION / PLANS: The patient was placed in a supine position and transferred to the recovery area in a stable condition for observation. There was no evidence of lower extremity motor or sensory deficit after the procedure. Patient was discharged from the recovery room after meeting discharge criteria. Home discharge instructions were given to the patient by the staff. The patient was reexamined prior to discharge. The patient will follow up as directed.
--- NOTE | 2022-01-19 13:26 | FL ---
Intraoperative/procedural fluoroscopic services were provided for lumbar epidural injection. Total fl uoroscopy time is 6 seconds with a total of 1 submitted image to PACS. Please see the operative note for further details.
[2022-01-19 13:33] VITALS: BP 143/83; PULSE 54
== END 2022-01-19 13:37 | disposition home or self-care (01) ==
LOC: ORPAIN 11:51
PROVIDERS: ATTEND Hospitalist
DX: M54.16 Radiculopathy, lumbar region (principal); Z91.040 Latex allergy status
CPT/HCPCS: 62323; J1030; Q9966

== ENCOUNTER → 2022-02-11 | Outpatient (CLI) | payer MEDICARE, OTHER ==
--- NOTE | 2022-02-11 12:04 | P.PAINPG ---
Subjective Progress Note Date: 02/11/22 Principal diagnosis: Left thigh pain, and burning sensation Mr. Parish is a 81-year-old pleasant male came to the [facility] pain clinic for follow-up visit. He had left L3-L4 lumbar epidural steroid injection with no relief. He is maintained consent on anterior side of the thigh pain causing burning, tingling sensation. He had a previous history of shingles multiple times last one was 10 years ago . Patient has ongoing pain for many years. Patient describes pain is aching, burning type of pain. Pain is is not radiating to his lower extremities. Patient rated pain levels are 6 out of 10 in severity. With the help of medications pain levels are 3-8 out of 10 in severity. Activities making pain worse. Medications, resting, diclofenac 3% helping in relieving patient's pain. Patient pain some days better than others. Overall activities decreased secondary to pain. Because of the pain sometimes patient is feeling lack of sleep, interest, and energy. Denied any side effects with the medications. Denied any bowel or bladder problems at this time . is not using any walking aids.. Patient denies any suicidal or homicidal ideations intent or plan. Patient denies any auditory or visual hallucinations. Patient denied any red flag symptoms related to pain. He tried Lyrica, gabapentin, acupuncture, and physical therapy with minimal relief Objective - Exam General: Well-developed, well-nourished, no acute distress HEENT: Normocephalic, and atraumatic Neck: Supple, no neck swelling Psychiatric: Appropriate mood, and affect RELIGIOUS LEADER: No focal neurological deficits Musculoskeletal: Upper extremity: Normal strength, and range of motion. Sensation grossly intact Lower extremity: Normal strength, and normal strength, and range of motion. No visible lesions over the left side thigh. Tinel's sign-negative Lumbar spine: Paravertebral tenderness: Negative Lumbar facet load test : Negative Sacroiliac joint tenderness: Negative Thigh thrust test: Negative [ ] - Constitutional Constitutional Comment(s): 13 point review of symptoms negative except as mentioned in history of present illness Assessment and Plan Assessment: Left thigh area postherpetic neuralgia Chronic pain syndrome Plan: #1 Diagnoses, prognosis, and multiple treatment options including but not limited to physical therapy, interventional therapy, adjunct medication therapy, narcotic medication, and surgical options were discussed with the patient. And all questions were answered to the patient's satisfaction. #2 treatment plan agreement : Patient was thoroughly discussed regarding the treatment options, alternatives, and importance of exercises as tolerated. Patient clearly understood. #3 Patient was counseled on importance of regular exercise. #4 investigations: MAPS- reviewed , urine drug test-none #5 diagnostic tests: None #6 consultation : None # 7 interventional procedures: None at this time. #8 medications #1 diclofenac 3% ointment over the affected area 1-3 times a day dispense 100 g with 5 refills. He tried 1% diclofenac ointment with minimal effectiveness. #2 Biomed compound cream #5. I discussed with the patient regarding not to use biomed compound cream and diclofenac 3 percent. Both have diclofenac 3%. Patient understood. Medication side effects, complications, long-term consequences discussed with the patient. Patient recommended to contact the pain clinic if noticed any issues with given medications. #9 morphine milligrams equivalents dose ( MME) per day: 0from the pain clinic. # 10 TENS unit's #11 disposition: scheduled to follow up with pain clinic in 12 weeks duration. Time with Patient: Less than 30 PQRS Measure Charge Sheet Measure #130: Documentation of Current Meds in Medical Chart: Patient's medications documented in chart Measure #226: Tobacco Use: Screen & Cessation Intervention: Pt not a tobacco user Measure #111: Pneumonia Vaccination: Pneumococcal vaccine administered or previously received Measure #47: Advance Care Plan: Advance care planning discussed & documented, plan or surrogate given Measure #412: Opioid Treatment Agreement: No documentation of signed opioid treatment agreement Measure #408: Opioid Therapy Follow-up Evaluation: Patient had NO f/u eval minimum every 3 months during opioid therapy Measure #317: Preventitive Care & Scrn High Bld Press & F/U: Pre-hypertensive or hypertensive BP documented, pt will f/u with PCP Measure #128: Body Mass Index (BMI) Screening & Follow-up: BMI documented within normal parameters Measure #131: Pain Assessment & Follow-up: Pain positive & plan documented Measure #431: Unhealthy Alcohol Use Preventative Care & Scrn: Patient not identified as an unhealthy alcohol user PQRS Narrative: Smoking Status Current some day smoker Hx Alcohol Use (MH) Yes: OCC. Home Medications: Ambulatory Orders Latanoprost Ophth [Xalatan 0.005%] 1 drops LEFT EYE HS 10/22/14 Benazepril HCl [Lotensin] 20 mg PO QAM 11/25/14 amLODIPine BESYLATE [Norvasc] 5 mg PO QAM 11/25/14 Acetaminophen [Tylenol] 1,000 mg PO DAILY PRN 12/05/17 Timolol 0.5% Ophth Gel Forming [Timoptic-Xe] 1 drops LEFT EYE DAILY 03/07/18 Diclofenac Sodium Gel [Voltaren Gel] 100 gm TOPICAL QID PRN 30 Days #3 gm 09/28/21 Gabapentin [Neurontin] 300 mg PO BID 30 Days #60 cap 12/31/21 Controlled Substance Measures - Controlled Substance Measures Is patient prescribed a controlled substance at discharge?: No
[2022-02-11 12:13] VITALS: BP 181/83; PULSE 84; RESP 18; TEMP 97.4
== END ==
LOC: PNWHC3 10:31
DX: B02.22 Postherpetic trigeminal neuralgia (principal); G89.4 Chronic pain syndrome; Z91.040 Latex allergy status; F17.210 Nicotine dependence, cigarettes, uncomplicated
CPT/HCPCS: 99211

== ENCOUNTER → 2023-01-20 | Outpatient (CLI) | payer MEDICARE, OTHER ==
--- NOTE | 2023-01-21 08:47 | PE ---
EXAMINATION TYPE: PET CT fusion skull to thigh DATE OF EXAM: 01/21/2023 COMPARISON: No pertinent prior CT Prior PET/CT: None at this location HISTORY: Prostate cancer TECHNIQUE: Following the intravenous administration of 5.65 mCi gallium PSMA, whole body images are performed from the skull base to the midthigh. Images are reviewed on the computer in the coronal, a xial, and sagittal planes. Reconstructed rotating images are created on independent workstation and reviewed on the computer. A localization and attenuation correction CT is performed in conjunction with the PET scan. DLP: 410.84 mGycm SCAN: Initial Blood glucose: NA mg/dL FINDINGS: NECK: Normal uptake within salivary glands. No abnormal uptake within the neck. THORAX: No abnormal uptake ABDOMEN: No abnormal uptake PELVIS: No abnormal uptake OSSEOUS STRUCTURES: No suspicious uptake to suggest osseous metastasis. LOCALIZATION CT: Renal cysts are noted. Coronary artery calcification is present. COMPARISON: None IMPRESSION: 1. No suspicious uptake to suggest metastatic prostate neoplasm
== END | disposition home or self-care (01) ==
LOC: RADPETMAIN 12:39
PROVIDERS: ATTEND Urology
DX: C61 Malignant neoplasm of prostate (principal); R97.21 Rising PSA following treatment for malignant neoplasm of prostate
CPT/HCPCS: 78815; A9596